=== PATIENT | female | born 1965 | race Caucasian/White ===

== ENCOUNTER 2016-04-23 03:26 | Emergency (ER) | payer SELFPAY ==
[2016-04-23 03:39] VITALS: BP 151/84; PULSE 64; TEMP 97.6; BMI 39.1
--- NOTE | 2016-04-23 03:51 | EDPRACDOC ---
- General Information Chief Complaint: Foreign Body Stated Complaint: FOREIGN BODY, RT EAR Time Seen by Provider: 04/23/16 03:37 Information Source: Patient Mode Of Arrival: Car Home Medications: Home Medications Ferrous Sulfate [Iron] 325 mg PO DAILY 12/31/14 Ibuprofen 600 mg PO Q6-8H PRN 12/31/14 Levothyroxine Sodium 75 mcg PO DAILY 12/31/14 Lisinopril/Hydrochlorothiazide [Lisinopril-Hctz 20-25 mg Tab] 1 each PO DAILY Allergies/Adverse Reactions: Allergies Allergy/AdvReac Type Severity Reaction Status Date / Time No Known Allergies Allergy Verified 01/03/15 09:38 - History of Present Illness Onset: SKIN FORMER HPI: PT PUT AN EAR PLUG IN HER RIGHT EAR BEFORE GOING TO SLEEP. PT SAID THAT THE PLUG HAS MIGRATED DEEP INTO HER EAR AND SHE CAN'T GET IT OUT. Foreign Body Context: Reports: Possible Foreign Body, Purposefully Placed Foreign Body: Other (EAR PLUG) Location of Possible Foreign Body: Ear Removal: Attempted Pain Severity: Mild Shortness of breath: None Associated Signs & Symptoms: Reports: None ED Past Medical History - Patient Medical History Cardiac History: Reports: Hypertension Respiratory History: Denies: Pneumonia GI/ History: Reports: Kidney Stones Musculoskeletal History: Reports: Arthritis (OA) Psychological History: Denies: Depression Systemic History: Reports: Anemia (IRON DEFICIENCY), Hypothyroidism Additional Past Medical History: UTERINE FIBROIDS Surgical History: Reports: Other (CSXN). Denies: Hysterectomy - Family Medical History Reports: Hypertension (BROTHERS,MOTHER), Diabetes (MOTHER,SISTERS,NIECE), Cancer (UNCLE-COLON, AUNT, UNCLE), Cardiac Disorders (MOTHER,BROTHER,UNCLE). Denies: Stroke - Social Medical History Smoking Status: Never smoker ETOH: None Substance Abuse: None Lives With: Spouse Lives In: Home EDM Review of Systems - Review of Systems ROS Negative Except as Marked: Yes All systems reviewed and were negative except as marked Ears: Pain - Physical Exam Constitutional: Alert (Awake), No apparent distress Oriented to: Time, Person, Place Last recorded Vital Signs: Last Vital Signs Temp 97.6 F 04/23/16 03:36 Pulse 64 04/23/16 03:36 Resp 20 04/23/16 03:36 BP 151/84 04/23/16 03:36 Pulse Ox 98 04/23/16 03:36 Oxygen Pulse Oxygen Saturation 98 O2 Device Room Air Oxygen Flow Rate Fraction of Inspired Oxygen ( FIO2) - HEENT Head: Normal ( normocephalic) Eye Exam: Normal (PERRL, EOMI, Sclera white) Oropharynx: Normal (Pharynx:Moist without exudate,Gums-no swelling) Tympanic Membrane: Obscured, Other (FB RIGHT EAR CANAL) ENT EAC: Normal TMJ: Normal Nose: No Symptoms Reported (septum midline) Neck: Normal (FROM, trachea at midline) - Respiratory/Cardiovascular Respiratory: Normal - CTA (BBS clear to auscultation without adventitious sounds ) Cardiovascular: Normal (RRR without murmur, gallop or rub) - GI Auscultation: Normal (NABS) Palpation: Normal (Soft,No rebound or guarding, non distended) Tenderness: Non tender Barber's Sign: Negative - Additional Information FB REMOVED WITH IRRIGATION. MILD IRRITATION TO CANAL FROM INSTRUMENTATION. Decision Time to Discharge: 03:55 - Departure Yes I personally saw and evaluated the patient. Disposition: Home Condition: Fair Final Diagnosis: Foreign body in ear Instructions: Ear Foreign Body (ED) Education/Counseling Given To: Patient, Family Member Education/Counseling Given Regarding: Diagnosis, Treatment, Follow Up Referrals: Omer Love MD [Primary Care Provider] - One Week Prescriptions: No Action Levothyroxine Sodium 75 mcg PO DAILY Ferrous Sulfate [Iron] 325 mg PO DAILY Ibuprofen 600 mg PO Q6-8H PRN PRN Reason: Pain Lisinopril/Hydrochlorothiazide [Lisinopril-Hctz 20-25 mg Tab] 1 each PO DAILY
[2016-04-23] MEDS ORDERED: LIDOCAINE 2% JELLY 5 ML TUBE TOP ONE (03:54)
== END 2016-04-23 04:05 | disposition home or self-care (01) ==
LOC: ED 03:26
DX: T16.1XXA Foreign body in right ear, initial encounter (principal); X58.XXXA Exposure to other specified factors, initial encounter; Y93.89 Activity, other specified
CPT/HCPCS: 99282; J3490